=== PATIENT | male | born 1970 | race African-American/Black ===

== ENCOUNTER 2018-03-04 17:44 | Inpatient (IN) | payer OTHER ==
[2018-03-04 18:19] VITALS: BMI 30.8
--- NOTE | 2018-03-04 21:18 | HP ---
COWS - Scale Resting Pulse: 0= [place] 80 or Below Sweatin= Chills/Flushing Restless Observation: 1= Difficult to Sit Still Pupil Size: 1= Pupils >than Normal Bone or Joint Aches: 1= Mild Discomfort Runny Nose/ Eye Tearin= Runny Nose/Eyes GI Upset > 30mins: 1= Stomach Cramp Tremor Observation: 1= Tremor [place], Not Seen Yawning Observation: 2= >3x During Session Anxiety or Irritability: 2=Irritable/Anxious Goose Flesh Skin: 0=Smooth Skin COWS Score: 12 Admission [facility] Chief Complaint: opioid withdrawal symptoms Allergies/Adverse Reactions: Allergies Allergy/AdvReac Type Severity Reaction Status Date / Time No Known Allergies Allergy Verified 03/04/18 20:20 History of Present Illness: 48 yo male with hx of nicotine, cocaine and heroin (nasal) dependence is here seeking detox. Currently resides in [facility] (nursing home). Reports first time in detox, reports was [facility] [id number]. PMHX: HTN (non-adherent with medications). Denies psychiatric history . Denies suicidal / homicidal ideation. Denies hx of seizures, overdose or blackouts. Longest period of sobriety 3 years and nine months. Exam Limitations: No Limitations - Ebola screening Have you traveled outside of the country in the last 21 days: No (N) Have you had contact with anyone from an Ebola affected area: No Have you been sick,other than usual withdrawal symptoms: No Do you have a fever: No - Review of Systems Constitutional: Chills, Changes in sleep EENT: reports: Nose Congestion Respiratory: reports: No Symptoms reported Cardiac: reports: No Symptoms Reported GI: reports: Poor Fluid Intake, Abdominal cramping : reports: No Symptoms Reported Musculoskeletal: reports: Joint Pain, Muscle Pain Integumentary: reports: No Symptoms Reported Neuro: reports: No Symptoms reported Endocrine: reports: Increased Thirst Hematology: reports: No Symptoms Reported Psychiatric: reports: Orientated x3, Depressed Other Systems: Reviewed and Negative Patient History - Patient Medical History Hx Anemia: No Hx Asthma: No Hx Chronic Obstructive Pulmonary Disease (COPD): No Hx Cancer: No Hx Cardiac Disorders: No Hx Congestive Heart Failure: No Hx Hypertension: Yes Hx Hypercholesterolemia: No Hx Pacemaker: No HX Cerebrovascular Accident: No Hx Seizures: No Hx Dementia: No Hx Diabetes: No Hx Gastrointestinal Disorders: No Hx Liver Disease: No Hx Genitourinary Disorders: No Hx Sexually Transmitted Disorders: No Hx Renal Disease (ESRD): No Hx Thyroid Disease: No Hx Human Immunodeficiency Virus (HIV): No Hx Hepatitis C: No (August 2017) Hx Depression: Yes Hx Suicide Attempt: No Hx Schizophrenia: No - Patient Surgical History Past Surgical History: No Hx Neurologic Surgery: No Hx Cataract Extraction: No Hx Cardiac Surgery: No Hx Lung Surgery: No Hx Breast Surgery: No Hx Breast Biopsy: No Hx Abdominal Surgery: No Hx Appendectomy: No Hx Cholecystectomy: No Hx Genitourinary Surgery: No Hx Section: No Hx Orthopedic Surgery: No Anesthesia Reaction: No - PPD History 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 History Hx Alcohol Use: No Hx Substance Use: Yes Substance Use Type: Cocaine, Heroin Hx Substance Use Treatment: Yes - Substances Abused Heroin Route: Inhalation Frequency: Daily Amount used: 15 bags Age of first use: 25 Date of Last Use: 03/04/18 Cocaine Route: Inhalation Frequency: Daily Amount used: 1/2gm Age of first use: 36 Date of Last Use: 03/04/18 Family Disease History - Family Disease History Family Disease History: Heart Disease: Grandparent (deceaes, HTN ), Mother (HTN) Admission Physical Exam [facility] - Vital Signs Vital Signs: Vital Signs - 24 hr 03/04/18 18:15 Temperature 97.8 F Pulse Rate 77 Respiratory 18 Rate Blood Pressure 150/98 - Physical General Appearance: Yes: Disheveled, Mild Distress, Sweating, Anxious HEENTM: Yes: EOMI, Hearing grossly Normal, Normal ENT Inspection, Normocephalic , Normal Voice, VITALIY, Pharynx Normal, Tm's normal Respiratory: Yes: Chest Non-Tender, Lungs Clear, Normal Breath Sounds, No Respiratory Distress, No Accessory Muscle Use Neck: Yes: Within Normal Limits Breast: Yes: Breast Exam Deferred Cardiology: Yes: Regular Rhythm, Regular Rate Abdominal: Yes: Normal Bowel Sounds, Non Tender, Flat, Soft Genitourinary: Yes: Within Normal Limits Back: Yes: Normal Inspection Musculoskeletal: Yes: full range of Motion, Gait Steady, Pelvis Stable Extremities: Yes: Normal Capillary Refill, Normal Inspection, Normal Range of Motion, Non-Tender Neurological: Yes: coal or ore controller II-XII NML intact, Motor Strength 5/5 Integumentary: Yes: Normal Color, Warm, Diaphoresis Lymphatic: Yes: Within Normal Limits - Diagnostic (1) Opioid dependence with withdrawal Current Visit: Yes Status: Acute (2) Nicotine dependence Current Visit: Yes Status: Acute Qualifiers: Nicotine product type: cigarettes (3) Cocaine dependence Current Visit: Yes Status: Acute Qualifiers: Substance use status: uncomplicated Qualified Code(s): F14.20 - Cocaine dependence, uncomplicated (4) Hypertension Current Visit: Yes Status: Chronic Qualifiers: Hypertension type: essential hypertension Qualified Code(s): I10 - Essential (primary) hypertension Cleared for Admission [facility] - Detox or Rehab [facility] Level of Care: Medically Managed Detox Regimen/Protocol: Methadone [facility] Breath Alcohol Content Breath Alcohol Content: 0 Urine Drug Screen - Results Drug Screen Negative: No Urine Drug Screen Results: MELIA-Cocaine, OPI-Opiates
[2018-03-04] MEDS ORDERED: LOPERAMIDE HCL 2 MG CAPSULE PO PRN (21:25)
[2018-03-04] MEDS ORDERED: P-EPHED 60MG/TRIPROLIDI 2.5MG TABLET PO PRN (21:25)
[2018-03-04] MEDS ORDERED: METHADONE HCL 10 MG TABLET (FOR DETOX USE ONLY) PO ONE ×2 (21:25→23:00)
[2018-03-04] MEDS ORDERED: MAGNESIUM HYDROX 2400MG/30ML ORAL SUSPENSION 30 ML CUP PO PRN (21:25)
[2018-03-04] MEDS ORDERED: MENTHOL/PHENOL 1 EACH UD MM PRN (21:25)
[2018-03-04] MEDS ORDERED: MAG HYDROX/AL HYDROX/SIMETH 30 ML UNIT-DOSE CUP PO PRN (21:25)
[2018-03-04] MEDS ORDERED: IBUPROFEN 400 MG TABLET (FP) PO PRN (21:25)
[2018-03-04] MEDS ORDERED: ACETAMINOPHEN 325 MG TABLET (FP) PO PRN (21:25)
[2018-03-04] MEDS ORDERED: MAGNESIUM CITRATE 300 ML BOTTLE PO PRN (21:25)
[2018-03-04] MEDS ORDERED: guaiFENesin/D-METHORPHAN HB 10 ML UNIT-DOSE CUPS PO PRN (21:25)
[2018-03-04] MEDS ORDERED: NICOTINE POLACRILEX 2 MG GUM BUC PRN (21:25)
[2018-03-04] MEDS ORDERED: MELATONIN 5 MG TABLETS PO PRN (22:00)
[2018-03-04] MEDS: THIAMINE HCL 100 MG TABLET (FP) PO SCH (22:40)
[2018-03-04 23:48] LABS: URINE APPEARANCE CLOUDY; URINE BILIRUBIN NEGATIVE (<2.0 mg/dL); URINE COLOR YELLOW; URINE GLUCOSE (UA) NEGATIVE (NEGATIVE); URINE KETONE NEGATIVE (NEGATIVE); URINE NITRITE NEGATIVE (NEGATIVE); URINE PROTEIN NEGATIVE (NEGATIVE)
[2018-03-04 23:49] LABS: URINE LEUK ESTERASE 3+ (NEGATIVE)
[2018-03-04 23:53] LABS: CALCIUM OXALATE CRYSTALS RARE /hpf (NONE SEEN); EPI CELLS FEW /HPF (FEW); URINE BACTERIA RARE /hpf (NONE SEEN); URINE MUCUS MODERATE
--- NOTE | 2018-03-05 09:39 | EKG ---
Test Reason : Blood Pressure : / mmHG Vent. Rate : 072 BPM Atrial Rate : 072 BPM P-R Int : 178 ms QRS Dur : 098 ms QT Int : 366 ms P-R-T Axes : 072 075 043 degrees QTc Int : 400 ms SINUS RHYTHM WITH PREMATURE ATRIAL COMPLEXES IN A PATTERN OF BIGEMINY NONSPECIFIC T WAVE ABNORMALITY ABNORMAL ECG NO PREVIOUS ECGS AVAILABLE Confirmed by MIGUEL ANDINO MD ([id number]) on 03/05/2018 9:38:59 AM Referred By: Confirmed By:MIGUEL ANDINO MD
[2018-03-05] MEDS ORDERED: METHADONE HCL 10 MG TABLET (FOR DETOX USE ONLY) PO ONE (10:00)
[2018-03-05 10:01] LABS: HEMOGLOBIN 13.2 GM/dL (11.7-16.9); MCH 26.6 pg (25.7-33.7); MCHC 32.9 g/dl (32.0-35.9); MEAN CELL VOLUME 80.8 fl (80-96); PLATELET COUNT 167 K/MM3 (134-434); RBC 4.94 M/mm3 (4.00-5.60); RDW 15.6 % (11.9-15.9); WHITE BLOOD COUNT 8.4 K/mm3 (4.0-10.0)
[2018-03-05] MEDS: HYDROCHLOROTHIAZIDE 12.5 MG CAPSULE (FP) PO SCH (10:40)
[2018-03-05] MEDS: NICOTINE 21 MG/24 HOURS TOPICAL PATCH TD SCH (10:40)
[2018-03-05] MEDS: PRENATAL VITAMINS W/ FOLIC ACID TABLET (FP) PO SCH (10:40)
[2018-03-05] MEDS: LISINOPRIL 20 MG TABLET (FP) PO SCH (10:40)
[2018-03-05 10:55] LABS: ALBUMIN 3.3 g/dl (3.4-5.0); ALK PHOS 80 U/L (45-117); ANION GAP 10 MMOL/L (8-16); BILIRUBIN,TOTAL 0.3 mg/dL (0.2-1); BLOOD UREA NITROGEN 21 mg/dL (7-18); CALCIUM 9.3 mg/dL (8.5-10.1); CHLORIDE 108 mmol/L (98-107); CO2 26 mmol/L (21-32); CREATININE 0.8 mg/dL (0.55-1.3); GLUCOSE,RANDOM 82 mg/dL (74-106); POTASSIUM 3.9 mmol/L (3.5-5.1); SGOT/AST 18 U/L (15-37); SGPT/ALT 22 U/L (13-61); SODIUM 144 mmol/L (136-145)
--- NOTE | 2018-03-05 14:00 | PN ---
[facility] COWS - Scale Resting Pulse: 0= [place] 80 or Below Sweatin= No chills or Flushing Restless Observation: 0= Sits Still Pupil Size: 0= Normal to Room Light Bone or Joint Aches: 0= None Runny Nose/ Eye Tearin= None GI Upset > 30mins: 0= None Tremor Observation of Outstretched Hands: 0= None Yawning Observation: 0= None Goose Flesh Skin: 0=Smooth Skin [facility] Progress Note (SOAP) Subjective: Patient irritable during exam. States "I have a headache". Objective: 03/05/18 13:57 Laboratory Tests 03/04/18 03/05/18 03/05/18 21:40 07:00 07:00 WBC 8.4 RBC 4.94 Hgb 13.2 Hct 40.0 MCV 80.8 MCH 26.6 MCHC 32.9 RDW 15.6 Plt Count 167 MPV 8.0 Sodium Potassium Chloride Carbon Dioxide Anion Gap BUN Creatinine Creat Clearance w eGFR Random Glucose Calcium Total Bilirubin AST ALT Alkaline Phosphatase Total Protein Albumin Urine Color Yellow Urine Appearance Cloudy Urine pH 5.0 Ur Specific [place] 1.027 Urine Protein Negative Urine Glucose (UA) Negative Urine Ketones Negative Urine Blood Negative Urine Nitrite Negative Urine Bilirubin Negative Urine Urobilinogen 2.0 Ur Leukocyte Esterase 3+ H Urine WBC (Auto) 205 Urine RBC (Auto) 12 Ur Epithelial Cells Few Calcium Oxalate Crystal Rare Urine Bacteria Rare Urine Mucus Moderate RPR Titer HIV 1&2 Antibody Screen Negative HIV P24 Antigen Negative 03/05/18 03/05/18 07:00 07:00 WBC RBC Hgb Hct MCV MCH MCHC RDW Plt Count MPV Sodium 144 Potassium 3.9 Chloride 108 H Carbon Dioxide 26 Anion Gap 10 BUN 21 H Creatinine 0.8 Creat Clearance w eGFR > 60 Random Glucose 82 Calcium 9.3 Total Bilirubin 0.3 AST 18 ALT 22 Alkaline Phosphatase 80 Total Protein 6.0 L Albumin 3.3 L Urine Color Urine Appearance Urine pH Ur Specific [place] Urine Protein Urine Glucose (UA) Urine Ketones Urine Blood Urine Nitrite Urine Bilirubin Urine Urobilinogen Ur Leukocyte Esterase Urine WBC (Auto) Urine RBC (Auto) Ur Epithelial Cells Calcium Oxalate Crystal Urine Bacteria Urine Mucus RPR Titer Nonreactive HIV 1&2 Antibody Screen HIV P24 Antigen Vital Signs Temperature 98.6 F 03/05/18 13:41 Pulse Rate 69 03/05/18 13:41 Respiratory Rate 18 03/05/18 13:41 Blood Pressure 162/95 03/05/18 13:41 O2 Sat by Pulse Oximetry (%) PE: alert and oriented skin warm and dry car s1s2 resp cta bl neuro CN 1-X11 grossly intact Assessment: 03/05/18 14:00 withdrawal syndrome elevated bp Plan: continue detox as ordered encourage oral fluids will order clonidine 0.1mg po once continue to monitor clinically
[2018-03-05] MEDS ORDERED: cloNIDine HCL 0.1 MG TABLET PO ONE (14:46)
--- NOTE | 2018-03-05 18:21 | CONSULT ---
[facility] Psychiatric Consult - Data Date of interview: 03/05/18 Admission source: [facility] Identifying data: Patient is a 48 year old single male, father of one, unemployed, and currently residing in a correction. This is patient's first admission to detox at [facility]. Pt. admitted to for opioid and cocaine dependence. Substance Abuse History: Smoking Cessation. Smoking history: Current every day smoker. Have you smoked in the past 12 months: Yes. Aproximately how many cigarettes per day: 10. Hx Chewing Tobacco Use: No. Initiated information on smoking cessation: Yes. 'Breaking Loose' booklet given: 03/04/18. - Substance & Tx. History. Hx Alcohol Use: No. Hx Substance Use: Yes. Substance Use Type : Cocaine, Heroin. Hx Substance Use Treatment: Yes. - Substances Abused. Heroin. Route: Inhalation. Frequency: Daily. Amount used: 15 bags. Age of first use: 25. Date of Last Use: 03/04/18. Cocaine. Route: Inhalation. Frequency: Daily. Amount used: 1/2gm. Age of first use: 36. Date of Last Use : 03/04/18 Medical History: hypertension Psychiatric History: Patient denies h/o psychiatric hospitalization, outpatient care, and suicide attempt. He currently see's a therapist in [place] to help address his personal issues. Pt. reports poor sleep. Physical/Sexual Abuse/Trauma History: denies. Mental Status Exam - Mental Status Exam Alert and Oriented to: Time, Place, Person Cognitive Function: Good Patient Appearance: Well Groomed Mood: Euthymic Affect: Mood Congruent Patient Behavior: Appropriate, Cooperative Speech Pattern: Appropriate Voice Loudness: Normal Thought Process: Intact, Goal Oriented Thought Disorder: Not Present Hallucinations: Denies Suicidal Ideation: Denies Homicidal Ideation: Denies Insight/Judgement: Poor Sleep: Poorly Appetite: Fair Muscle strength/Tone: Normal Gait/Station: Normal Psychiatric Findings - Problem List ([place] 1, 2,3) (1) Cocaine dependence Current Visit: Yes Status: Chronic Qualifiers: Substance use status: uncomplicated Qualified Code(s): F14.20 - Cocaine dependence, uncomplicated (2) Nicotine dependence Current Visit: Yes Status: Chronic Qualifiers: Nicotine product type: cigarettes (3) Opioid dependence with withdrawal Current Visit: Yes Status: Acute (4) Substance induced mood disorder Current Visit: No Status: Suspected - Initial Treatment Plan Initial Treatment Plan: Psychoeducation provided. Detoxification in progress. Pt. informed that melatonin 5mg is available for insomnia.
[2018-03-06] MEDS: THIAMINE HCL 100 MG TABLET (FP) PO SCH ×2 (09:22→22:17)
[2018-03-06] MEDS ORDERED: METHADONE HCL 5 MG TABLET (FOR DETOX USE ONLY) PO ONE (10:00)
[2018-03-06] MEDS: diazePAM 5 MG TABLET PO PRN (10:42)
[2018-03-06] MEDS: PRENATAL VITAMINS W/ FOLIC ACID TABLET (FP) PO SCH (10:42)
[2018-03-06] MEDS: LISINOPRIL 20 MG TABLET (FP) PO SCH (10:42)
[2018-03-06] MEDS: HYDROCHLOROTHIAZIDE 12.5 MG CAPSULE (FP) PO SCH (10:42)
[2018-03-06] MEDS: NICOTINE 21 MG/24 HOURS TOPICAL PATCH TD SCH (10:43)
--- NOTE | 2018-03-06 11:26 | PN ---
[facility] COWS - Scale Resting Pulse: 0= [place] 80 or Below Sweatin= Chills/Flushing Restless Observation: 1= Difficult to Sit Still Pupil Size: 0= Normal to Room Light Bone or Joint Aches: 2= Severe Diffuse Aches Runny Nose/ Eye Tearin= Nasal Congestion GI Upset > 30mins: 1= Stomach Cramp Tremor Observation of Outstretched Hands: 2= Slight Tremor Visible Yawning Observation: 2= >3x During Session Anxiety or Irritability: 2=Irritable/Anxious Goose Flesh Skin: 0=Smooth Skin COWS Score: 12 [facility] Progress Note (SOAP) Subjective: irritable restless sweats shakes Objective: 03/06/18 11:24 Vital Signs Temperature 97.0 F L 03/06/18 09:26 Pulse Rate 66 03/06/18 09:26 Respiratory Rate 18 03/06/18 09:26 Blood Pressure 145/92 03/06/18 09:26 O2 Sat by Pulse Oximetry (%) Laboratory Tests 03/04/18 03/05/18 03/05/18 21:40 07:00 07:00 WBC 8.4 RBC 4.94 Hgb 13.2 Hct 40.0 MCV 80.8 MCH 26.6 MCHC 32.9 RDW 15.6 Plt Count 167 MPV 8.0 Sodium Potassium Chloride Carbon Dioxide Anion Gap BUN Creatinine Creat Clearance w eGFR Random Glucose Calcium Total Bilirubin AST ALT Alkaline Phosphatase Total Protein Albumin Urine Color Yellow Urine Appearance Cloudy Urine pH 5.0 Ur Specific [place] 1.027 Urine Protein Negative Urine Glucose (UA) Negative Urine Ketones Negative Urine Blood Negative Urine Nitrite Negative Urine Bilirubin Negative Urine Urobilinogen 2.0 Ur Leukocyte Esterase 3+ H Urine WBC (Auto) 205 Urine RBC (Auto) 12 Ur Epithelial Cells Few Calcium Oxalate Crystal Rare Urine Bacteria Rare Urine Mucus Moderate RPR Titer HIV 1&2 Antibody Screen Negative HIV P24 Antigen Negative 03/05/18 03/05/18 07:00 07:00 WBC RBC Hgb Hct MCV MCH MCHC RDW Plt Count MPV Sodium 144 Potassium 3.9 Chloride 108 H Carbon Dioxide 26 Anion Gap 10 BUN 21 H Creatinine 0.8 Creat Clearance w eGFR > 60 Random Glucose 82 Calcium 9.3 Total Bilirubin 0.3 AST 18 ALT 22 Alkaline Phosphatase 80 Total Protein 6.0 L Albumin 3.3 L Urine Color Urine Appearance Urine pH Ur Specific [place] Urine Protein Urine Glucose (UA) Urine Ketones Urine Blood Urine Nitrite Urine Bilirubin Urine Urobilinogen Ur Leukocyte Esterase Urine WBC (Auto) Urine RBC (Auto) Ur Epithelial Cells Calcium Oxalate Crystal Urine Bacteria Urine Mucus RPR Titer Nonreactive HIV 1&2 Antibody Screen HIV P24 Antigen repeated u/a with c/s aaox3 ambulating no acute distress Assessment: 03/06/18 11:25 withdrawal sx Plan: continue detox increase fluids f/u pending repeated u/a
[2018-03-07 09:02] VITALS: BP 167/99; PULSE 57; TEMP 97.9
--- NOTE | 2018-03-07 09:22 | PN ---
[facility] Progress Note Note: Vital Signs Temperature 97.9 F 03/07/18 09:02 Pulse Rate 57 L 03/07/18 09:02 Respiratory Rate 20 03/07/18 09:02 Blood Pressure 167/99 03/07/18 09:02 O2 Sat by Pulse Oximetry (%) Laboratory Last Values WBC 8.4 K/mm3 (4.0-10.0) 03/05/18 07:00 RBC 4.94 M/mm3 (4.00-5.60) 03/05/18 07:00 Hgb 13.2 GM/dL (11.7-16.9) 03/05/18 07:00 Hct 40.0 % (35.4-49) 03/05/18 07:00 MCV 80.8 fl (80-96) 03/05/18 07:00 MCH 26.6 pg (25.7-33.7) 03/05/18 07:00 MCHC 32.9 g/dl (32.0-35.9) 03/05/18 07:00 RDW 15.6 % (11.9-15.9) 03/05/18 07:00 Plt Count 167 K/MM3 (134-434) 03/05/18 07:00 MPV 8.0 fl (7.5-11.1) 03/05/18 07:00 Sodium 144 mmol/L (136-145) 03/05/18 07:00 Potassium 3.9 mmol/L (3.5-5.1) 03/05/18 07:00 Chloride 108 mmol/L (98-107) H 03/05/18 07:00 Carbon Dioxide 26 mmol/L (21-32) 03/05/18 07:00 Anion Gap 10 MMOL/L (8-16) 03/05/18 07:00 BUN 21 mg/dL (7-18) H 03/05/18 07:00 Creatinine 0.8 mg/dL (0.55-1.3) 03/05/18 07:00 Creat Clearance w eGFR > 60 (>60) 03/05/18 07:00 Random Glucose 82 mg/dL (74-106) 03/05/18 07:00 Calcium 9.3 mg/dL (8.5-10.1) 03/05/18 07:00 Total Bilirubin 0.3 mg/dL (0.2-1) 03/05/18 07:00 AST 18 U/L (15-37) 03/05/18 07:00 ALT 22 U/L (13-61) 03/05/18 07:00 Alkaline Phosphatase 80 U/L (45-117) 03/05/18 07:00 Total Protein 6.0 g/dl (6.4-8.2) L 03/05/18 07:00 Albumin 3.3 g/dl (3.4-5.0) L 03/05/18 07:00 Urine Color Yellow 03/04/18 21:40 Urine Appearance Cloudy 03/04/18 21:40 Urine pH 5.0 (5.0-8.0) 03/04/18 21:40 Ur Specific [place] 1.027 (1.001-1.035) 03/04/18 21:40 Urine Protein Negative (NEGATIVE) 03/04/18 21:40 Urine Glucose (UA) Negative (NEGATIVE) 03/04/18 21:40 Urine Ketones Negative (NEGATIVE) 03/04/18 21:40 Urine Blood Negative (NEGATIVE) 03/04/18 21:40 Urine Nitrite Negative (NEGATIVE) 03/04/18 21:40 Urine Bilirubin Negative (<2.0 mg/dL) 03/04/18 21:40 Urine Urobilinogen 2.0 mg/dL (0.2-1.0) 03/04/18 21:40 Ur Leukocyte Esterase 3+ (NEGATIVE) H 03/04/18 21:40 Urine WBC (Auto) 205 /hpf (3-5) 03/04/18 21:40 Urine RBC (Auto) 12 /hpf (0-3) 03/04/18 21:40 Ur Epithelial Cells Few /HPF (FEW) 03/04/18 21:40 Calcium Oxalate Crystal Rare /hpf (NONE SEEN) 03/04/18 21:40 Urine Bacteria Rare /hpf (NONE SEEN) 03/04/18 21:40 Urine Mucus Moderate 03/04/18 21:40 RPR Titer Nonreactive (NONREACTIVE) 03/05/18 07:00 HIV 1&2 Antibody Screen Negative 03/05/18 07:00 HIV P24 Antigen Negative 03/05/18 07:00 nausea, vomiting, anxious, interrupted sleep Aox3 no distress, anxious no adventitious breath sounds full rom ambulating in the unit withdrawal sx tigan IM : n/v fluids as tolerated continue detox
[2018-03-07] MEDS ORDERED: TRIMETHOBENZAMIDE HCL 200MG/2ML INJ IM ONE (09:30)
[2018-03-07] MEDS ORDERED: METHADONE HCL 5 MG TABLET (FOR DETOX USE ONLY) PO ONE (10:00)
[2018-03-07] MEDS: PRENATAL VITAMINS W/ FOLIC ACID TABLET (FP) PO SCH (10:30)
[2018-03-07] MEDS: LISINOPRIL 20 MG TABLET (FP) PO SCH (10:30)
[2018-03-07] MEDS: HYDROCHLOROTHIAZIDE 12.5 MG CAPSULE (FP) PO SCH (10:30)
[2018-03-07] MEDS: NICOTINE 21 MG/24 HOURS TOPICAL PATCH TD SCH (10:30)
[2018-03-07] MEDS: diazePAM 5 MG TABLET PO PRN (10:30)
--- NOTE | 2018-03-07 11:19 | PN ---
[facility] Progress Note Note: Vital Signs Temperature 97.9 F 03/07/18 09:02 Pulse Rate 57 L 03/07/18 09:02 Respiratory Rate 20 03/07/18 09:02 Blood Pressure 167/99 03/07/18 09:02 O2 Sat by Pulse Oximetry (%) Patient insist on leaving AMA now. Patient advised to continue treatment, but decline. Patient advised on the risk of not completing treatment which include relapsed, overdose and possible . Patient denies suicidal / homicidal ideation. Patient advised to follow up with the emergency department if worsening symptoms are present. Patient verbalizes understanding.
[2018-03-07 11:21] LABS: URINE APPEARANCE SLCLOUDY; URINE BILIRUBIN NEGATIVE (<2.0 mg/dL); URINE COLOR DKYELLOW; URINE GLUCOSE (UA) NEGATIVE (NEGATIVE); URINE KETONE NEGATIVE (NEGATIVE); URINE NITRITE NEGATIVE (NEGATIVE); URINE PROTEIN NEGATIVE (NEGATIVE)
[2018-03-07 11:27] LABS: URINE LEUK ESTERASE 3+ (NEGATIVE)
[2018-03-07 11:32] LABS: CALCIUM OXALATE CRYSTALS FEW /hpf (NONE SEEN); EPI CELLS FEW /HPF (FEW); URINE MUCUS MODERATE
--- NOTE | 2018-03-07 13:32 | DS ---
[facility] Detox Discharge Summary Admission Date: 03/04/18 Discharge Date: 03/07/18 - History Present History: Cocaine Dependence, Opioid Dependence Additional Comments: Patient insist on leaving AMA now. Patient advised to continue treatment, but decline. Patient advised on the risk of not completing treatment which include relapsed, overdose and possible . Patient denies suicidal / homicidal ideation. Patient advised to follow up with the emergency department if worsening symptoms are present. Follow up with primary care provider in a week. Patient verbalizes understanding. - Physical Exam Results Vital Signs: Vital Signs Temperature 97.9 F 03/07/18 09:02 Pulse Rate 57 L 03/07/18 09:02 Respiratory Rate 20 03/07/18 09:02 Blood Pressure 167/99 03/07/18 09:02 O2 Sat by Pulse Oximetry (%) Pertinent Admission Physical Exam Findings: Vital Signs Temperature 97.9 F 03/07/18 09:02 Pulse Rate 57 L 03/07/18 09:02 Respiratory Rate 20 03/07/18 09:02 Blood Pressure 167/99 03/07/18 09:02 O2 Sat by Pulse Oximetry (%) Laboratory Last Values WBC 8.4 K/mm3 (4.0-10.0) 03/05/18 07:00 RBC 4.94 M/mm3 (4.00-5.60) 03/05/18 07:00 Hgb 13.2 GM/dL (11.7-16.9) 03/05/18 07:00 Hct 40.0 % (35.4-49) 03/05/18 07:00 MCV 80.8 fl (80-96) 03/05/18 07:00 MCH 26.6 pg (25.7-33.7) 03/05/18 07:00 MCHC 32.9 g/dl (32.0-35.9) 03/05/18 07:00 RDW 15.6 % (11.9-15.9) 03/05/18 07:00 Plt Count 167 K/MM3 (134-434) 03/05/18 07:00 MPV 8.0 fl (7.5-11.1) 03/05/18 07:00 Sodium 144 mmol/L (136-145) 03/05/18 07:00 Potassium 3.9 mmol/L (3.5-5.1) 03/05/18 07:00 Chloride 108 mmol/L (98-107) H 03/05/18 07:00 Carbon Dioxide 26 mmol/L (21-32) 03/05/18 07:00 Anion Gap 10 MMOL/L (8-16) 03/05/18 07:00 BUN 21 mg/dL (7-18) H 03/05/18 07:00 Creatinine 0.8 mg/dL (0.55-1.3) 03/05/18 07:00 Creat Clearance w eGFR > 60 (>60) 03/05/18 07:00 Random Glucose 82 mg/dL (74-106) 03/05/18 07:00 Calcium 9.3 mg/dL (8.5-10.1) 03/05/18 07:00 Total Bilirubin 0.3 mg/dL (0.2-1) 03/05/18 07:00 AST 18 U/L (15-37) 03/05/18 07:00 ALT 22 U/L (13-61) 03/05/18 07:00 Alkaline Phosphatase 80 U/L (45-117) 03/05/18 07:00 Total Protein 6.0 g/dl (6.4-8.2) L 03/05/18 07:00 Albumin 3.3 g/dl (3.4-5.0) L 03/05/18 07:00 Urine Color [place] 03/07/18 07:40 Urine Appearance Slcloudy 03/07/18 07:40 Urine pH 5.0 (5.0-8.0) 03/07/18 07:40 Ur Specific [place] 1.026 (1.001-1.035) 03/07/18 07:40 Urine Protein Negative (NEGATIVE) 03/07/18 07:40 Urine Glucose (UA) Negative (NEGATIVE) 03/07/18 07:40 Urine Ketones Negative (NEGATIVE) 03/07/18 07:40 Urine Blood Negative (NEGATIVE) 03/07/18 07:40 Urine Nitrite Negative (NEGATIVE) 03/07/18 07:40 Urine Bilirubin Negative (<2.0 mg/dL) 03/07/18 07:40 Urine Urobilinogen 2.0 mg/dL (0.2-1.0) 03/07/18 07:40 Ur Leukocyte Esterase 3+ (NEGATIVE) H 03/07/18 07:40 Urine WBC (Auto) 93 /hpf (3-5) 03/07/18 07:40 Urine RBC (Auto) 19 /hpf (0-3) 03/07/18 07:40 Ur Epithelial Cells Few /HPF (FEW) 03/07/18 07:40 Calcium Oxalate Crystal Few /hpf (NONE SEEN) 03/07/18 07:40 Urine Bacteria Rare /hpf (NONE SEEN) 03/04/18 21:40 Urine Mucus Moderate 03/07/18 07:40 RPR Titer Nonreactive (NONREACTIVE) 03/05/18 07:00 HIV 1&2 Antibody Screen Negative 03/05/18 07:00 HIV P24 Antigen Negative 03/05/18 07:00 - Medication Discharge Medications: Ambulatory Orders Diltiazem Cd [Cardizem Cd -] 180 mg PO DAILY 03/04/18 Hydrochlorothiazide [Hctz -] 12.5 mg PO DAILY 03/04/18 Lisinopril [Prinivil -] 20 mg PO DAILY 03/04/18 - Diagnosis (1) Opioid dependence with withdrawal Status: Acute (2) Nicotine dependence Status: Chronic Qualifiers: Nicotine product type: cigarettes (3) Cocaine dependence Status: Chronic Qualifiers: Substance use status: uncomplicated Qualified Code(s): F14.20 - Cocaine dependence, uncomplicated (4) Hypertension Status: Chronic Qualifiers: Hypertension type: essential hypertension Qualified Code(s): I10 - Essential (primary) hypertension - AMA Did Patient Leave Against Medical Advice: Yes
[2018-03-08] MEDS ORDERED: METHADONE HCL 10 MG TABLET (FOR DETOX USE ONLY) PO ONE (10:00)
[2018-03-09] MEDS ORDERED: METHADONE HCL 5 MG TABLET (FOR DETOX USE ONLY) PO ONE (06:00)
== END 2018-03-07 11:55 | disposition left against medical advice (07) | DRG 770 ==
LOC: YASAS 17:44 → Y6N 21:33
PROC: HZ2ZZZZ Detoxification Services for Substance Abuse Treatment (ICD-10-PCS; principal; 2018-03-04)
DX: F11.23 Opioid dependence with withdrawal (principal); F14.20 Cocaine dependence, uncomplicated; F17.210 Nicotine dependence, cigarettes, uncomplicated; F19.24 Other psychoactive substance dependence with psychoactive substance-induced mood disorder; I10 Essential (primary) hypertension; Z91.14 Patient's other noncompliance with medication regimen; Z59.0 Homelessness
CPT/HCPCS: 36415; 71046-TC-FY; 80053; 81003; 81015; 85027; 86593; 87389; 93005; 93010; J0735